=== PATIENT | male | born 1960 | race Caucasian/White ===

== ENCOUNTER → 2024-10-03 08:05 | Outpatient (REF) | payer OTHER, SELFPAY | LOC: RCS 08:05 | PROVIDERS: ATTENDING PHYSICIAN Physician Assistant Medical | DX: I10 Essential (primary) hypertension (principal); R94.31 Abnormal electrocardiogram [ECG] [EKG]; R00.1 Bradycardia, unspecified | CPT/HCPCS: 93225; 93226 ==

== ENCOUNTER → 2024-10-09 12:47 | Outpatient (REF) | payer OTHER, SELFPAY | LOC: RCS 12:47 | PROVIDERS: ATTENDING PHYSICIAN Physician Assistant Medical | DX: I10 Essential (primary) hypertension (principal); R94.31 Abnormal electrocardiogram [ECG] [EKG]; R00.1 Bradycardia, unspecified | CPT/HCPCS: 93017; 93306 ==

== ENCOUNTER → 2024-11-21 09:09 | Outpatient (REF) | payer OTHER, SELFPAY ==
[2024-11-21 10:25] LABS: Blood Urea Nitrogen 17 mg/dl (9-20); Calcium 9.9 mg/dl (8.4-10.2); Carbon Dioxide 24 mmol/L (22-30); Chloride 107 mmol/L (98-107); Glucose 129 mg/dl (70-99); Potassium 4.6 mmol/L (3.5-5.1); Sodium 138 mmol/L (135-145); eGFR > 60.00
== END ==
LOC: REG 09:09
PROVIDERS: ATTENDING PHYSICIAN Internal Medicine; FAMILY PHYSICIAN Physician Assistant Medical
DX: R94.39 Abnormal result of other cardiovascular function study (principal); R00.1 Bradycardia, unspecified
CPT/HCPCS: 36415; 80048

== ENCOUNTER → 2024-11-28 17:12 | Outpatient (REF) | payer OTHER, SELFPAY | LOC: RAD 17:12 | PROVIDERS: ATTENDING PHYSICIAN Internal Medicine; FAMILY PHYSICIAN Physician Assistant Medical | DX: I71.21 Aneurysm of the ascending aorta, without rupture (principal) | CPT/HCPCS: 71275; Q9967 ==

== ENCOUNTER → 2025-02-05 09:51 | Outpatient (REF) | payer OTHER, SELFPAY | LOC: HWRAD 09:51 | PROVIDERS: ATTENDING PHYSICIAN Physician Assistant Medical | DX: R05.3 Chronic cough (principal); R07.9 Chest pain, unspecified | CPT/HCPCS: 71046 ==